=== PATIENT | female | born 1960 | race Caucasian/White ===

== ENCOUNTER 2019-04-26 07:47 | Inpatient (IN) | payer OTHER ==
[2019-04-26] MEDS ORDERED: ASPIRIN 81 MG CHEWABLE TABLET ONE (08:12)
[2019-04-26] MEDS ORDERED: NITROGLYCERIN 0.4 MG/TAB SL ONE (08:12)
[2019-04-26 08:43] LABS: Basophils % 1.3 % (0-1.3); Hematocrit 39.3 % (36.0-45.0); Lymphocytes % 19.2 % (15.3-44.8); MPV 9.1 fL (7.6-11.3); RBC Red Blood Cell Count 4.38 M/uL (3.86-4.86)
[2019-04-26 08:55] LABS: Protime INR 0.95
[2019-04-26 09:05] LABS: ALT/SGPT 30 U/L (12-78); AST/SGOT 16 U/L (15-37); Albumin 3.5 g/dL (3.4-5.0); Alkaline Phosphatase 134 U/L (45-117); BUN Blood Urea Nitrogen 10 mg/dL (7-18); Bicarbonate 27 mmol/L (21-32); Bilirubin Direct < 0.1 mg/dL (0-0.2); Bilirubin Total 0.3 mg/dL (0.2-1.0); Glucose Level 112 mg/dL (74-106); Magnesium 2.2 mg/dL (1.8-2.4); NT PRO-BNP 137 pg/mL (<125); Potassium 3.7 mmol/L (3.5-5.1); Protein, Total 7.4 g/dL (6.4-8.2); Sodium Level 137 mmol/L (136-145); Troponin (Emerg Dept Use Only) < 0.02 ng/mL (0.0-0.045)
--- NOTE | 2019-04-26 09:48 | RAD REPORT ---
EXAM DESCRIPTION: Ethan Single View04/26/2019 8:25 am CLINICAL HISTORY: Chest pain COMPARISON: none FINDINGS: The lungs appear clear of acute infiltrate. The heart is upper limits normal size IMPRESSION: No acute abnormalities displayed
--- NOTE | 2019-04-26 12:16 | ER ---
Nurse's Notes [facility] Name: Lory Naylor Age: 58 yrs Sex: Female : 1960 Arrival Date: 04/26/2019 Time: 07:50 Bed 17 Private MD: Fletcher Garcia E Diagnosis: Non-ST elevation (NSTEMI) myocardial infarction Presentation: 04/26 08:03 Presenting complaint: Patient states: woke up at 6 this morning with left sided chest iw pain radiating to left arm, 5/10, constant, also has headache and her BP was high at home, was 239/112, took losartan 100 mg at 0600. Transition of care: patient was not received from another setting of care. Onset of symptoms was April 26, 2019. Risk Assessment: Do you want to hurt yourself or someone else? Patient reports no desire to harm self or others. Initial Sepsis Screen: Does the patient meet any 2 criteria? No. Patient's initial sepsis screen is negative. Does the patient have a suspected source of infection? No. Patient's initial sepsis screen is negative. Care prior to arrival: None. 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 - Ebola Screening: : Patient negative for fever greater than or equal to 101.5 degrees Fahrenheit, and additional compatible Ebola Virus Disease symptoms Patient denies exposure to infectious person Patient denies travel to an Ebola-affected area in the 21 days before illness onset No symptoms or risks identified at this time. - Social history:: Smoking status: Patient uses tobacco products, smokes one-half pack cigarettes per day. Screenin:25 Abuse screen: Denies threats or abuse. Nutritional screening: No deficits noted. em Tuberculosis screening: No symptoms or risk factors identified. Fall Risk None identified. Assessment: 08:10 General: Appears in no apparent distress. comfortable, Behavior is calm, cooperative, em Denies fever. Pain: Complains of pain in chest and head Pain radiates to anterior aspect of left shoulder Pain currently is 5 out of 10 on a pain scale. Quality of pain is described as pressure, Pain began 2 hours ago. Neuro: Level of Consciousness is awake, alert, obeys commands, Oriented to person, place, time, situation, Appropriate for age Reports headache Denies blurred vision dizziness. Cardiovascular: Capillary refill < 3 seconds Patient's skin is warm and dry. Rhythm is sinus rhythm. Respiratory: Airway is patent Respiratory effort is even, unlabored, Respiratory pattern is regular, symmetrical. GI: Derm: Skin is intact, is healthy with good turgor, Skin is pink, warm \T\ dry. Musculoskeletal: Capillary refill < 3 seconds, Range of motion: intact in all extremities. 08:25 Reassessment: Patient appears in no apparent distress at this time. Patient and/or em family updated on plan of care and expected duration. Pain level reassessed. Patient is alert, oriented x 3, equal unlabored respirations, skin warm/dry/pink. rates pain 2/10 Patient states feeling better. Patient states symptoms have improved. 09:50 Reassessment: Patient appears in no apparent distress at this time. Patient and/or em family updated on plan of care and expected duration. Pain level reassessed. Patient is alert, oriented x 3, equal unlabored respirations, skin warm/dry/pink. rates pain 2/10 in left arm, denies chest pain or headache. 10:50 Reassessment: Patient appears in no apparent distress at this time. Patient and/or em family updated on plan of care and expected duration. Pain level reassessed. Patient is alert, oriented x 3, equal unlabored respirations, skin warm/dry/pink. 11:35 Reassessment: Patient appears in no apparent distress at this time. Patient and/or em family updated on plan of care and expected duration. Pain level reassessed. Patient is alert, oriented x 3, equal unlabored respirations, skin warm/dry/pink. repeat trop. sent to lab. 13:52 Reassessment: Patient appears in no apparent distress at this time. Patient and/or em family updated on plan of care and expected duration. Pain level reassessed. Patient is alert, oriented x 3, equal unlabored respirations, skin warm/dry/pink. Patient denies pain at this time. Patient states feeling better. Patient states symptoms have improved. 14:27 Reassessment: Patient appears in no apparent distress at this time. Patient and/or em family updated on plan of care and expected duration. Pain level reassessed. Patient is alert, oriented x 3, equal unlabored respirations, skin warm/dry/pink. pending room assignment. Vital Signs: 08:08 BP 184 / 93; Pulse 76; Resp 16; Temp 98.0; Pulse Ox 98% on R/A; Pain 5/10; iw 08:25 BP 147 / 86; Pulse 78; Resp 18; Pulse Ox 93% on R/A; Pain 2/10; em 09:10 BP 160 / 90; Pulse 69; Resp 18; Pulse Ox 95% on R/A; Pain 2/10; em 10:11 BP 156 / 84; Pulse 67; Resp 20; Pulse Ox 96% on R/A; Pain 2/10; em 10:50 BP 151 / 91; Pulse 68; Resp 18; Pulse Ox 97% on R/A; em 11:48 BP 169 / 85; Pulse 65; Resp 18; Pulse Ox 95% on R/A; Pain 2/10; em 12:47 Weight 81.19 kg (M); Height 5 ft. 2 in. (157.48 cm) (R); em 13:30 BP 152 / 84; Pulse 59; Resp 18; Pulse Ox 99% on R/A; Pain 0/10; em 14:27 BP 152 / 84; Pulse 64; Resp 18; Pulse Ox 97% on R/A; em 12:47 Body Mass Index 32.74 (81.19 kg, 157.48 cm) em ED Course: 07:50 Patient arrived in ED. mr 07:50 Fletcher Garcia MD is Private Physician. mr 07:50 Christiano Mcclain MD is Attending Physician. kdr 08:05 Triage completed. iw 08:08 Arm band placed on. iw 08:09 Lan Cam LVN is Primary Nurse. em 08:15 Patient maintains SpO2 saturation greater than 95% on room air. em 08:16 EKG done, by ED staff, reviewed by Christiano Mcclain MD. jb1 08:25 Patient has correct armband on for positive identification. Placed in gown. Bed in low em position. Call light in reach. Side rails up X2. Adult w/ patient. monitoring specialist on. Pulse ox on. NIBP on. 08:26 XRAY Chest (1 view) In Process Unspecified. EDMS 12:15 Marla Salgado MD is Hospitalizing Provider. kdr 12:28 EKG done, by ED staff, reviewed by Christiano Mcclain MD. jb1 15:02 No provider procedures requiring assistance completed. Patient admitted, IV remains in em place. Administered Medications: 08:13 Drug: Aspirin Chewable Tablet 324 mg Route: PO; iw 08:26 Follow up: Response: No adverse reaction em 08:13 Drug: Nitroglycerin 0.4 mg Route: Sublingual; iw 08:26 Follow up: Response: No adverse reaction; Marked relief of symptoms; Pain is decreased em 12:44 Drug: Tylenol 1000 mg Route: PO; em 13:50 Follow up: Response: No adverse reaction em 12:45 Drug: Nitro-Bid Ointment 2 % 1 inches Route: Transdermal; Site: anterior chest wall; em 13:50 Follow up: Response: No adverse reaction; Marked relief of symptoms; Blood pressure is em lowered 12:55 Drug: Lovenox 80 mg Route: Sub-Q; Site: left lower abdomen; em 13:50 Follow up: Response: No adverse reaction em 13:01 Not Given (Physician Discretion; received verbal order to give 80 mg sub q): Lovenox 1 em mg/kg Sub-Q once Outcome: 12:16 Decision to Hospitalize by Provider. kdr 15:02 Admitted to Tele accompanied by tech, family with patient, via wheelchair, room 424, em with chart, Report called to BEAR Kang 15:02 Condition: good 15:02 Instructed on the need for admit, Demonstrated understanding of instructions. 15:12 Patient left the ED. em Signatures: Dispatcher [employer] EDMS Enoch Moreno jb1 Christiano Mcclain MD MD kdr Holloway, Lisa mr Lan Cam, PUBLIC HEALTH ANALYST PUBLIC HEALTH ANALYST em Keyla Carter RN RN iw Niño, Zena, RN RN ph Corrections: (The following items were deleted from the chart) 08:13 08:08 BP 184 / 93; Pulse 76bpm; Resp 16bpm; Pulse Ox 98% RA; Pain 5/10; iw iw 09:03 08:25 Reassessment: Patient appears in no apparent distress at this time. Patient em and/or family updated on plan of care and expected duration. Pain level reassessed. Patient is alert, oriented x 3, equal unlabored respirations, skin warm/dry/pink. rates pain 2/10 Patient states feeling better. Patient states symptoms have improved. ph
--- NOTE | 2019-04-26 12:16 | EDPHYS ---
Physician Documentation [facility] Name: Lory Naylor Age: 58 yrs Sex: Female : 1960 Arrival Date: 04/26/2019 Time: 07:50 Bed 17 Private MD: Fletcher Garcia E ED Physician Christiano Mcclain HPI: 04/26 08:09 This 58 yrs old Female presents to ER via Ambulatory with complaints of Chest kdr Pain, High Blood Pressure. 08:39 The patient or guardian reports chest pain that is located primarily in the anterior kdr chest wall, left. Onset: suddenly, at 06:30. The pain radiates to the left arm, the left shoulder, left neck, left jaw. Associated signs and symptoms: Pertinent positives: headache, Pertinent negatives: recent travel, shortness of breath, syncope, vomiting. The chest pain is described as aching, dull, a heaviness, a pressure. Duration: The patient or guardian reports a single episode, that is still ongoing, but improving. Modifying factors: The symptoms are alleviated by nothing. the symptoms are aggravated by movement. Severity of pain: At its worst the pain was a 8 / 10 in the emergency department the pain is a 6 / 10. The patient has not experienced similar symptoms in the past. The patient has not recently seen a physician. 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 - Ebola Screening: : Patient negative for fever greater than or equal to 101.5 degrees Fahrenheit, and additional compatible Ebola Virus Disease symptoms Patient denies exposure to infectious person Patient denies travel to an Ebola-affected area in the 21 days before illness onset No symptoms or risks identified at this time. - Social history:: Smoking status: Patient uses tobacco products, smokes one-half pack cigarettes per day. ROS: 08:39 Constitutional: Negative for fever, chills, and weight loss, Eyes: Negative for injury, kdr pain, redness, and discharge, ENT: Negative for injury, pain, and discharge, Neck: Negative for injury, pain, and swelling, Respiratory: Negative for shortness of breath, cough, wheezing, and pleuritic chest pain, Abdomen/GI: Negative for abdominal pain, nausea, vomiting, diarrhea, and constipation, Back: Negative for injury and pain, : Negative for injury, bleeding, discharge, and swelling, MS/Extremity: Negative for injury and deformity, Skin: Negative for injury, rash, and discoloration, Neuro: Negative for headache, weakness, numbness, tingling, and seizure activity. Psych: Negative for depression, anxiety, suicide ideation, homicidal ideation, and hallucinations, Allergy/Immunology: Negative for hives, rash, and allergies, Endocrine: Negative for neck swelling, polydipsia, polyuria, polyphagia, and marked weight changes, Hematologic/Lymphatic: Negative for swollen nodes, abnormal bleeding, and unusual bruising. 08:39 Cardiovascular: Positive for chest pain, Negative for edema, orthopnea, palpitations, paroxysmal nocturnal dyspnea, acute changes, The left leg has chronic swelling. Exam: 08:39 Constitutional: This is a well developed, well nourished patient who is awake, alert, kdr and in no acute distress. Head/Face: Normocephalic, atraumatic. Eyes: Pupils equal round and reactive to light, extra-ocular motions intact. Lids and lashes normal. Conjunctiva and sclera are non-icteric and not injected. Cornea within normal limits. Periorbital areas with no swelling, redness, or edema. Neck: Trachea midline, no thyromegaly or masses palpated, and no cervical lymphadenopathy. Supple, full range of motion without nuchal rigidity, or vertebral point tenderness. No Meningismus. Chest/axilla: Normal chest wall appearance and motion. Nontender with no deformity. No lesions are appreciated. Cardiovascular: Regular rate and rhythm with a normal S1 and S2. No gallops, murmurs, or rubs. Normal PMI, no JVD. No pulse deficits. Respiratory: Lungs have equal breath sounds bilaterally, clear to auscultation and percussion. No rales, rhonchi or wheezes noted. No increased work of breathing, no retractions or nasal flaring. Abdomen/GI: Soft, non-tender, with normal bowel sounds. No distension or tympany. No guarding or rebound. No evidence of tenderness throughout. Back: No spinal tenderness. No costovertebral tenderness. Full range of motion. Skin: Warm, dry with normal turgor. Normal color with no rashes, no lesions, and no evidence of cellulitis. MS/ Extremity: Pulses equal, no cyanosis. Neurovascular intact. Full, normal range of motion. The is chronic swelling to the left lower extremity that is unchanged today Neuro: Awake and alert, GCS 15, oriented to person, place, time, and situation. Cranial nerves II-XII grossly intact. Motor strength 5/5 in all extremities. Sensory grossly intact. Cerebellar exam normal. Normal gait. Psych: Awake, alert, with orientation to person, place and time. Behavior, mood, and affect are within normal limits. Vital Signs: 08:08 BP 184 / 93; Pulse 76; Resp 16; Temp 98.0; Pulse Ox 98% on R/A; Pain 5/10; iw 08:25 BP 147 / 86; Pulse 78; Resp 18; Pulse Ox 93% on R/A; Pain 2/10; em 09:10 BP 160 / 90; Pulse 69; Resp 18; Pulse Ox 95% on R/A; Pain 2/10; em 10:11 BP 156 / 84; Pulse 67; Resp 20; Pulse Ox 96% on R/A; Pain 2/10; em 10:50 BP 151 / 91; Pulse 68; Resp 18; Pulse Ox 97% on R/A; em 11:48 BP 169 / 85; Pulse 65; Resp 18; Pulse Ox 95% on R/A; Pain 2/10; em 12:47 Weight 81.19 kg (M); Height 5 ft. 2 in. (157.48 cm) (R); em 13:30 BP 152 / 84; Pulse 59; Resp 18; Pulse Ox 99% on R/A; Pain 0/10; em 14:27 BP 152 / 84; Pulse 64; Resp 18; Pulse Ox 97% on R/A; em 12:47 Body Mass Index 32.74 (81.19 kg, 157.48 cm) em MDM: 08:39 Data reviewed: vital signs, nurses notes, lab test result(s). kdr 12:16 Patient medically screened. kdr 12:47 ED course: The patient is current pain free and not requiring any pain medications . kdr 04/26 08:07 Order name: Basic Metabolic Panel; Complete Time: 09:23 kdr 04/26 08:07 Order name: CBC with Diff; Complete Time: 09:23 kdr 04/26 08:07 Order name: LFT's; Complete Time: 09:23 kdr 04/26 08:07 Order name: Magnesium; Complete Time: 09:23 kdr 12 08:07 Order name: NT PRO-BNP; Complete Time: 09:23 kdr 04/26 08:07 Order name: PT-INR; Complete Time: 09:23 kdr 04/26 08:07 Order name: Troponin (emerg Dept Use Only); Complete Time: 09:23 kdr 04/26 09:45 Order name: Troponin (emerg Dept Use Only): Repeat three (3) hours after initial draw; kdr Complete Time: 12:10 04/26 14:00 Order name: Lipid Profile EDMS 04/26 14:00 Order name: CBC with Automated Diff EDMS 04/26 14:00 Order name: CBC with Automated Diff EDMS 04/26 14:00 Order name: CBC with Automated Diff EDMS 04/26 14:00 Order name: CBC with Automated Diff EDMS 04/26 14:00 Order name: Comprehensive Metabolic Panel EDMS 04/26 08:07 Order name: XRAY Chest (1 view); Complete Time: 12:10 kdr 04/26 08:07 Order name: EKG; Complete Time: 08:08 kdr 04/26 14:00 Order name: CONS Physician Consult EDMS 04/26 14:00 Order name: Echo with Doppler EDMS 04/26 14:00 Order name: Comprehensive Metabolic Panel EDMS 04/26 14:00 Order name: Troponin I EDMS 04/26 14:00 Order name: Troponin I EDMS 04/26 14:00 Order name: Troponin I EDMS 04/26 14:00 Order name: Troponin I EDMS 04/26 14:00 Order name: Troponin I EDMS 04/26 08:07 Order name: Cardiac monitoring; Complete Time: 08:16 kdr 04/26 08:07 Order name: EKG - Nurse/Tech; Complete Time: 08:16 kdr 04/26 08:07 Order name: IV Saline Lock; Complete Time: 08:16 kdr 04/26 08:07 Order name: Labs collected and sent; Complete Time: 08:16 kdr 04/26 08:07 Order name: O2 Per Protocol; Complete Time: 08:16 kdr 04/26 08:07 Order name: O2 Sat Monitoring; Complete Time: 08:16 kdr 12 14:00 Order name: Clear Liquid EDMS 04/26 14:00 Order name: EKG Electrocardiogram EDMS 04/26 14:00 Order name: EKG Electrocardiogram EDMS Administered Medications: 08:13 Drug: Aspirin Chewable Tablet 324 mg Route: PO; iw 08:26 Follow up: Response: No adverse reaction em 08:13 Drug: Nitroglycerin 0.4 mg Route: Sublingual; iw 08:26 Follow up: Response: No adverse reaction; Marked relief of symptoms; Pain is decreased em 12:44 Drug: Tylenol 1000 mg Route: PO; em 13:50 Follow up: Response: No adverse reaction em 12:45 Drug: Nitro-Bid Ointment 2 % 1 inches Route: Transdermal; Site: anterior chest wall; em 13:50 Follow up: Response: No adverse reaction; Marked relief of symptoms; Blood pressure is em lowered 12:55 Drug: Lovenox 80 mg Route: Sub-Q; Site: left lower abdomen; em 13:50 Follow up: Response: No adverse reaction em 13:01 Not Given (Physician Discretion; received verbal order to give 80 mg sub q): Lovenox 1 em mg/kg Sub-Q once Disposition: 04/26/19 12:16 Hospitalization ordered by Marla Salgado for Inpatient Admission. Preliminary diagnosis is Non-ST elevation (NSTEMI) myocardial infarction. - Bed requested for Telemetry/MedSurg (Inpatient). - Status is Inpatient Admission. em - Condition is Fair. - Problem is new. - Symptoms have improved. UTI on Admission? No Signatures: Dispatcher [employer] Valencia Whitney RN BEAR Christiano Mcclain MD MD kdr Munoz, Edgar, CAR CLERK PULLMAN CAR CLERK PULLMAN em Keyla Carter RN RN Gisela Oropeza Corrections: (The following items were deleted from the chart) 13:03 12:16 Hospitalization Ordered by Marla Salgado MD for Inpatient Admission. Preliminary eb diagnosis is Non-ST elevation (NSTEMI) myocardial infarction. Bed requested for Telemetry/MedSurg (Inpatient). Status is Inpatient Admission. Condition is Fair. Problem is new. Symptoms have improved. UTI on Admission? No. kdr 14:37 13:03 04/26/2019 12:16 Hospitalization Ordered by Marla Salgado MD for Inpatient dw Admission. Preliminary diagnosis is Non-ST elevation (NSTEMI) myocardial infarction. Bed requested for Telemetry/MedSurg (Inpatient). Status is Inpatient Admission. Condition is Fair. Problem is new. Symptoms have improved. UTI on Admission? No. eb 15:12 14:37 04/26/2019 12:16 Hospitalization Ordered by Marla Salgado MD for Inpatient em Admission. Preliminary diagnosis is Non-ST elevation (NSTEMI) myocardial infarction. Bed requested for Telemetry/MedSurg (Inpatient). Status is Inpatient Admission. Condition is Fair. Problem is new. Symptoms have improved. UTI on Admission? No. dw
[2019-04-26] MEDS ORDERED: ACETAMINOPHEN 500 MG TAB ONE (12:25)
[2019-04-26] MEDS ORDERED: NITROGLYCERIN 1 GM PKT TD ONE (12:25)
[2019-04-26] MEDS ORDERED: ENOXAPARIN 80 MG/0.8 ML SQ ONE (12:51)
[2019-04-26] MEDS ORDERED: MORPHINE 2 MG/ML SYR IV PRN (13:47)
[2019-04-26] MEDS ORDERED: ONDANSETRON 4 MG/2 ML VIAL IV PRN (13:47)
[2019-04-26] MEDS ORDERED: ALBUTEROL 2.5 MG/3 ML NEB SOL NEB PRN (13:47)
[2019-04-26] MEDS: CLOPIDOGREL 75 MG TABLET PO SCH (13:53)
[2019-04-26] MEDS ORDERED: HYDRALAZINE HCL 20 MG/ML VIAL IV PRN (13:54)
[2019-04-26] MEDS ORDERED: Oxycodone HCl/Acetaminophen 1 TAB TAB PO PRN (13:54)
[2019-04-26] MEDS ORDERED: LORAZEPAM 0.5 MG TABLET PO PRN (13:54)
[2019-04-26] MEDS: NA CHLORIDE 0.9% 1,000 ML IV SCH ×2 (14:00→15:45)
[2019-04-26 15:23] VITALS: BMI 31.8
[2019-04-26] MEDS: NITROGLYCERIN 0.2 MG/HR (5 MG) PATCH TD SCH (16:00)
[2019-04-26] MEDS: NICOTINE 21 MG/PAT TD SCH (16:45)
[2019-04-26 16:54] LABS: Urine Appearance CLOUDY; Urine Bilirubin NEGATIVE (NEG); Urine Blood 3+ (NEG); Urine Color YELLOW; Urine Glucose NEGATIVE (NEG); Urine Protein NEGATIVE (NEG); Urine Specific Gravity 1.025 (1.005-1.030); Urine Urobilinogen 0.2 mg/dL (0.2-1.0)
[2019-04-26 17:31] LABS: Urine Microscopic Reflex ORDER UMIC
[2019-04-26 17:34] LABS: Urine Bacteria 20-50 /HPF (<20); Urine Culture Reflex Order REFLEXED; Urine RBC 20-50 /HPF (NONE SEEN)
[2019-04-26 17:43] LABS: Troponin I 0.64 ng/mL (0.0-0.045)
[2019-04-26] MEDS: carvediloL 3.125 MG TAB PO SCH ×2 (17:57→18:02)
[2019-04-26] MEDS: ATORVASTATIN 20 MG TAB PO SCH (20:54)
[2019-04-26] MEDS: FAMOTIDINE 20 MG TAB PO SCH (20:54)
[2019-04-26] MEDS: ROPINIROLE HCL 1 MG TAB PO SCH (20:55)
[2019-04-26] MEDS: ENOXAPARIN 80 MG/0.8 ML SQ SCH (20:56)
--- NOTE | 2019-04-27 01:46 | HP ---
Date of Admission: 04/26/2019 Presenting Complaint: Substernal chest pain. History Of Present Illness: Ms. Lory Naylor is a 58-year-old female with past medical history of hypertension, chronic tobacco use, who presented today after developing substernal chest p ain radiating to the left shoulder, onset was at about 6:00 a.m. this morning. Pain has woken the pa tient up from sleep. She describes the pain as more sharp. She says pain is different from her usua l heartburn symptoms. She denies any shortness of breath, but feels the pain was associated with davon e chest tightness. She admit to some cough intermittently from allergy symptoms since the last coupl e weeks. She denies any fever or chills. The pain continued to persist when she arrived in the ED w here she was given sublingual nitroglycerin, which decreased the intensity of the pain. She was also given aspirin as well as morphine. Her pain has reduced to 2/10 now. She denies any nausea or vomi ting. She denies any recent travel. Her initial EKG and cardiac enzyme were negative, but followup shows elevation of troponin to 0.16. The patient is being admitted for further acute coronary syndro me workup. She admits to a history of stress test done 5 years ago in the director emergency department's office when she was having similar pain post surgery. She reported stress test was negative then. She was star adams on blood pressure medications. She still continues to smoke. There is no family history of marcelo nary artery disease she is aware of. 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 Patient has history of left foot neuropathy post surgery. Past Surgical History: 1.Excision of left calf sarcoma 6 years ago treated with post resection with radiotherapy. 2.History of section x2. 3.History of endometrial D and C. Allergies: NO KNOWN DRUG ALLERGIES. Home Medications: Include ropinirole, lisinopril/hydrochlorothiazide. Social History: Patient resides in the community with her spouse. She is fully functional at [facility]. No history of alcohol or illicit drug use. She admits to half a pack to 1 pack of cigarettes sm oked per day since over the last 22 years. Family History: 1.Significant for both parents having debility and dementia in the 80s. 2.No history of coronary artery disease. Review of Systems: All systems reviewed x14 were negative. Physical Examination: Vital Signs: Blood pressure of 154/78, pulse rate of 69, respiratory rate of 18, O2 saturation 95% o n room air, temperature afebrile. General: Overweight middle-aged female, calm, not in any distress, sitting up in bed. HEENT: Head atraumatic, normocephalic. Pupils equal and reactive to light. [place] conjunctivae. Ani cteric. Moist oral mucosa. Neck: No JVD. No carotid bruit. Respiratory: Good air entry. No crepitation. Cardiovascular: S1, S2. Rate and rhythm regular. Noted tenderness in both bilateral anterior chest wall. The more prominent over the left shoulder area. No change in range of motion of the left rosalba ulder. GI: Abdomen was soft, nontender. No epigastric tenderness. Bowel sounds positive. Rectal: Deferred. Extremities: No calf tenderness bilaterally, notable scar over the left calf area with tenderness be low the area of the up to the left ankle. Neuro: Patient is alert and oriented. Cranial nerves 2 through 12 grossly intact. Laboratory Data: Sodium 137, potassium 3.7, bicarb 27, creatinine 0.8, glucose 112, magnesium 2.2, A ST and alkaline phosphatase normal. Troponin 0.16 after initial negative set. ProBNP of 137. WBC 1 0.6, hemoglobin 13, platelets 386. Chest x-ray shows no acute intrathoracic abnormality. EKG showed normal sinus rhythm, initial rate o f 66 beats per minute, repeat at a rate of 74 beats per minute . Impression: 1.Atypical chest pain, possible [id number] myocardial infarction. 2.Chronic tobacco use. 3.Hypertension. Plan: While we admit patient to inpatient status, we will manage patient for the followin.[id number] myocardial infarction, mild elevation in troponin noted. We will continue to do serial set of cardiac enzymes. We will consult Cardiology. We will start patient on Lovenox 1 mg/kg q.12 hours. We will start patient on low-dose beta essence as well as LEONCIO inhibitors. We will cont inue nitroglycerin patch. We placed her on telemetry. If further rise in her troponin, patient migh t benefit from cardiac cath. Option of inpatient stress test prior to discharge also discussed. We will start the patient on aspirin and Plavix. 2.Hypertension, follow with regimen as above. 3.Chronic tobacco use, need for tobacco cessation advice. We initiated the patient on nicotine patc h. 4.Deep venous thrombosis prophylaxis. Subcutaneous Lovenox as above. 5.Advanced directives. Patient is a full code. Total time spent review of record, discussion with patient and evaluation, as well as counseling olimpia ter than 60 minutes. EO/MODL Voice ID: [id number]
--- NOTE | 2019-04-27 02:12 | CON ---
History Of Present Illness: Ms. Naylor is 58. She came to the hospital because of chest pain, stat es that she has been having chest pain similar to this for quite some time relating to indigestion, b ut this morning when it was worse she came to the hospital, although her EKG is normal and her chest pain is resolved. Now, she had troponins that are elevated consistent with non-ST elevation non-Q-wa ve NM. About 5 years ago, an EKG was abnormal and she underwent a stress test and echo. They were n ormal according to the patient. Dr. Hatch was the attending physician then. The patient has no pr evious history of myocardial infarction, stroke, or diabetes. She has hypertension. 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 Medications: Her outpatient medications are ropinirole, tramadol, cyclobenzaprine, duloxetine, losar bess. Allergies: SHE REPORTS ALLERGIES TO CODEINE, SULFA ANTIBIOTICS. SHE HAS NO PROBLEM TAKING X-RAY CON TRAST MATERIAL. Past Medical History: History of tubal ligation. She has not had any examinations by motor vehicle clerk i n several years and noted some spotting when she was given Lovenox. Physical Examination: General: She is alert, oriented, pleasant, 5 feet 3 inches, 179 pounds. HEENT: Normal. Lungs: Clear. Cardiac: Normal. Abdomen: Soft. Extremities: Normal pulses. On her left leg, there is an extensive scar and skin grafting from wher e she had her liposarcoma resected. Imaging: Her electrocardiogram is normal. Impression: The patient has an acute coronary syndrome. She probably has coronary heart disease. I have asked her to quit smoking and undergo a cardiac cath. Patient seemed to understand what a card iac catheterization is and agrees to proceed. We will keep her on Lovenox, aspirin, beta blockers, l ipid-lowering agents, Lovenox until we do the cardiac cath on Sunday. JORGE LUIS/POLI Voice ID: [id number] Report ID: [id number]
[2019-04-27] MEDS: carvediloL 3.125 MG TAB PO SCH ×2 (05:05→16:59)
--- NOTE | 2019-04-27 06:05 | EKG ---
Test Date: 2019-04-26 Test Time: 08:07:39 Salesperson Burial Needs: MICHAELLE MEASUREMENT RESULTS: Intervals: Rate: 74 KS: 152 QRSD: 76 QT: 394 QTc: 437 [place]: P: 37 KS: 152 QRS: 36 T: 49 INTERPRETIVE STATEMENTS: Normal sinus rhythm Low voltage QRS Borderline ECG No previous ECG available for comparison Electronically Signed On 04-27-19 06:04:59 ANTENNA MACHINE OPERATOR by Steve Le
[2019-04-27 06:07] LABS: Absolute Lymphocytes (CBC) 2.8 K/uL (0.7-4.9); Basophils % 1.4 % (0-1.3); Hematocrit 35.9 % (36.0-45.0); Lymphocytes % 30.5 % (15.3-44.8); MPV 9.3 fL (7.6-11.3)
[2019-04-27 06:25] LABS: ALT/SGPT 29 U/L (12-78); AST/SGOT 16 U/L (15-37); Alkaline Phosphatase 113 U/L (45-117); BUN Blood Urea Nitrogen 9 mg/dL (7-18); Bicarbonate 26 mmol/L (21-32); Bilirubin Total 0.2 mg/dL (0.2-1.0); Glucose Level 103 mg/dL (74-106); Potassium 3.9 mmol/L (3.5-5.1); Protein, Total 6.3 g/dL (6.4-8.2); Sodium Level 138 mmol/L (136-145)
[2019-04-27] MEDS: NICOTINE 21 MG/PAT TD SCH (08:29)
[2019-04-27] MEDS: ENOXAPARIN 80 MG/0.8 ML SQ SCH (08:30)
[2019-04-27] MEDS: FAMOTIDINE 20 MG TAB PO SCH ×2 (08:30→20:06)
[2019-04-27] MEDS: ROPINIROLE HCL 1 MG TAB PO SCH ×2 (08:30→20:06)
[2019-04-27] MEDS: CLOPIDOGREL 75 MG TABLET PO SCH (08:30)
[2019-04-27] MEDS: ASPIRIN 81 MG CHEWABLE TABLET PO SCH (08:30)
[2019-04-27] MEDS: lisinopriL 20 MG TAB PO SCH (08:30)
[2019-04-27] MEDS: NA CHLORIDE 0.9% 1,000 ML IV SCH (09:15)
[2019-04-27] MEDS: ACETAMINOPHEN 325 MG TABLET PO PRN ×2 (09:20→16:59)
[2019-04-27] MEDS: NITROGLYCERIN 0.2 MG/HR (5 MG) PATCH TD SCH (09:51)
--- NOTE | 2019-04-27 10:12 | EKG ---
Test Date: 2019-04-26 Test Time: 12:26:02 Numerical Control Operator: MICHAELLE MEASUREMENT RESULTS: Intervals: Rate: 66 [place]: 146 QRSD: 74 QT: 432 QTc: 452 [place]: P: 31 [place]: 146 QRS: 54 T: 69 INTERPRETIVE STATEMENTS: Normal sinus rhythm Low voltage QRS Borderline ECG Compared to ECG 04/26/2019 08:07:39 No significant changes Electronically Signed On 04-27-19 10:11:55 CLOSET BUILDER by Steve Le
--- NOTE | 2019-04-27 11:50 | P.PN ---
Subjective Date of Service: 04/27/19 Subjective: No new changes, No C/O voiced (seen , no new c/o , fever resolved) Review of Systems 10-point ROS is otherwise unremarkable Physical Examination - Vital Signs Temperature: 97.6 F Blood Pressure: 144/83 Pulse: 70 Respirations: 18 Pulse Ox (%): 98 - Physical Exam General: Alert, In no apparent distress, Oriented x3 HEENT: Atraumatic, Normocephalic, PERRLA Neck: 2+ carotid pulse no bruit, JVD not distended Respiratory: Clear to auscultation bilaterally, Normal air movement Cardiovascular: Regular rate/rhythm, Normal S1 S2 Gastrointestinal: Normal bowel sounds, Soft and benign Musculoskeletal: No clubbing, No swelling Neurological: Normal gait, Normal speech, Normal strength at 5/5 x4 extr - Studies Laboratory Last Values WBC 9.3 K/uL (4.3-10.9) 04/27/19 05:24 RBC 4.00 M/uL (3.86-4.86) 04/27/19 05:24 Hgb 12.1 g/dL (12.0-15.0) 04/27/19 05:24 Hct 35.9 % (36.0-45.0) L 04/27/19 05:24 MCV 89.8 fL (80-100) 04/27/19 05:24 MCH 30.2 pg (27.0-35.0) 04/27/19 05:24 MCHC 33.7 g/dL (32.0-36.0) 04/27/19 05:24 RDW 14.5 % (12.1-15.2) 04/27/19 05:24 Plt Count 343 K/uL (152-406) 04/27/19 05:24 MPV 9.3 fL (7.6-11.3) 04/27/19 05:24 Neutrophils % 57.0 % (41.7-73.7) 04/27/19 05:24 Lymphocytes % 30.5 % (15.3-44.8) 04/27/19 05:24 Monocytes % 8.8 % (3.3-12.3) 04/27/19 05:24 Eosinophils % 2.3 % (0-4.4) 04/27/19 05:24 Basophils % 1.4 % (0-1.3) H 04/27/19 05:24 Absolute Neutrophils 5.3 K/uL (1.8-8.0) 04/27/19 05:24 Absolute Lymphocytes 2.8 K/uL (0.7-4.9) 04/27/19 05:24 Absolute Monocytes 0.8 K/uL (0.1-1.3) 04/27/19 05:24 Absolute Eosinophils 0.2 K/uL (0-0.5) 04/27/19 05:24 Absolute Basophils 0.1 K/uL (0-0.5) 04/27/19 05:24 PT 11.2 SECONDS (9.5-12.5) 04/26/19 08:15 INR 0.95 04/26/19 08:15 Sodium 138 mmol/L (136-145) 04/27/19 05:24 Potassium 3.9 mmol/L (3.5-5.1) 04/27/19 05:24 Chloride 108 mmol/L (98-107) H 04/27/19 05:24 Carbon Dioxide 26 mmol/L (21-32) 04/27/19 05:24 BUN 9 mg/dL (7-18) 04/27/19 05:24 Creatinine 0.62 mg/dL (0.55-1.3) 04/27/19 05:24 Estimated GFR > 90 mL/min (=/>90) 04/27/19 05:24 Glucose 103 mg/dL (74-106) 04/27/19 05:24 Calcium 8.4 mg/dL (8.5-10.1) L 04/27/19 05:24 Magnesium 2.2 mg/dL (1.8-2.4) 04/26/19 08:15 Total Bilirubin 0.2 mg/dL (0.2-1.0) 04/27/19 05:24 Direct Bilirubin < 0.1 mg/dL (0-0.2) 04/26/19 08:15 AST 16 U/L (15-37) 04/27/19 05:24 ALT 29 U/L (12-78) 04/27/19 05:24 Alkaline Phosphatase 113 U/L (45-117) 04/27/19 05:24 Rapid Troponin I 0.16 ng/mL (0.0-0.045) H 04/26/19 11:39 Troponin I Cancelled 04/26/19 21:00 NT-Pro-B Natriuret Pep 137 pg/mL (<125) H 04/26/19 08:15 Serum Total Protein 6.3 g/dL (6.4-8.2) L 04/27/19 05:24 Albumin 3.0 g/dL (3.4-5.0) L 04/27/19 05:24 Globulin 3.3 g/dL (2.3-3.5) D 04/27/19 05:24 Albumin/Globulin Ratio 0.9 (1.1-1.8) L 04/27/19 05:24 Triglycerides 154 mg/dL (<150) H 04/26/19 17:05 Cholesterol 193 mg/dL (<200) 04/26/19 17:05 LDL Cholesterol, Calc 106 (<130) 04/26/19 17:05 HDL Cholesterol 56 mg/dL (40-60) 04/26/19 17:05 Cholesterol/HDL Ratio 3.45 04/26/19 17:05 Urine Color Yellow 04/26/19 16:10 Urine Appearance Cloudy 04/26/19 16:10 Urine pH 6.0 (5.0-7.0) 04/26/19 16:10 Ur Specific [place] 1.025 (1.005-1.030) 04/26/19 16:10 Urine Ketones Trace (NEG) 04/26/19 16:10 Urine Blood 3+ (NEG) H 04/26/19 16:10 Urine Nitrite Negative (NEG) 04/26/19 16:10 Urine Bilirubin Negative (NEG) 04/26/19 16:10 Urine Urobilinogen 0.2 mg/dL (0.2-1.0) 04/26/19 16:10 Ur Leukocyte Esterase Negative (NEG) 04/26/19 16:10 Urine RBC 20-50 /HPF (NONE SEEN) H 04/26/19 16:10 Urine WBC <5 /HPF (<5) 04/26/19 16:10 Ur Squamous Epith Cells 5-10 /HPF (NONE SEEN) H 04/26/19 16:10 Urine Bacteria 20-50 /HPF (<20) H 04/26/19 16:10 Urine Culture Reflexed Reflexed 04/26/19 16:10 Urine Glucose Negative (NEG) 04/26/19 16:10 Urine Total Protein Negative (NEG) 04/26/19 16:10 Medications List Reviewed: Yes Assessment & Plan - Problems (Diagnosis) (1) Pyelonephritis of right kidney Current Visit: Yes Status: Acute (2) Single kidney Current Visit: Yes Status: Acute Discharge Plan: Home - Code Status/Comfort Care Code Status Assessed: Yes Code Status: Full Code Physician Review: Patient Assessed, Agree with Above Assessment and Plan Physician Review Additional Text: # Right pyelonephritis - noted on CT imaging -resolved symptoms , - improving , c/w abx with levaquin - no fever since adm , follow urine cx -can dc home and follow cx # single kidney status - due to left nephrectomy for mass -stable creatinine # HTN -elevated , resume home meds and follow Critical Care: No
--- NOTE | 2019-04-27 12:04 | P.PN ---
Subjective Date of Service: 04/27/19 Chief Complaint: seen , admitted for chest pain with mild troponin Subjective: No new changes, No C/O voiced (-occ headaches since ntg patch) Review of Systems 10-point ROS is otherwise unremarkable Physical Examination - Vital Signs Temperature: 97.6 F Blood Pressure: 144/83 Pulse: 70 Respirations: 18 Pulse Ox (%): 98 - Physical Exam General: Alert, In no apparent distress, Oriented x3 HEENT: Atraumatic, Normocephalic, PERRLA Respiratory: Clear to auscultation bilaterally, Normal air movement Cardiovascular: No edema, Normal pulses, Regular rate/rhythm, Normal S1 S2 Gastrointestinal: Normal bowel sounds, Soft and benign Musculoskeletal: No clubbing, No swelling Neurological: Normal gait, Normal speech - Studies Laboratory Last Values WBC 9.3 K/uL (4.3-10.9) 04/27/19 05:24 RBC 4.00 M/uL (3.86-4.86) 04/27/19 05:24 Hgb 12.1 g/dL (12.0-15.0) 04/27/19 05:24 Hct 35.9 % (36.0-45.0) L 04/27/19 05:24 MCV 89.8 fL (80-100) 04/27/19 05:24 MCH 30.2 pg (27.0-35.0) 04/27/19 05:24 MCHC 33.7 g/dL (32.0-36.0) 04/27/19 05:24 RDW 14.5 % (12.1-15.2) 04/27/19 05:24 Plt Count 343 K/uL (152-406) 04/27/19 05:24 MPV 9.3 fL (7.6-11.3) 04/27/19 05:24 Neutrophils % 57.0 % (41.7-73.7) 04/27/19 05:24 Lymphocytes % 30.5 % (15.3-44.8) 04/27/19 05:24 Monocytes % 8.8 % (3.3-12.3) 04/27/19 05:24 Eosinophils % 2.3 % (0-4.4) 04/27/19 05:24 Basophils % 1.4 % (0-1.3) H 04/27/19 05:24 Absolute Neutrophils 5.3 K/uL (1.8-8.0) 04/27/19 05:24 Absolute Lymphocytes 2.8 K/uL (0.7-4.9) 04/27/19 05:24 Absolute Monocytes 0.8 K/uL (0.1-1.3) 04/27/19 05:24 Absolute Eosinophils 0.2 K/uL (0-0.5) 04/27/19 05:24 Absolute Basophils 0.1 K/uL (0-0.5) 04/27/19 05:24 PT 11.2 SECONDS (9.5-12.5) 04/26/19 08:15 INR 0.95 04/26/19 08:15 Sodium 138 mmol/L (136-145) 04/27/19 05:24 Potassium 3.9 mmol/L (3.5-5.1) 04/27/19 05:24 Chloride 108 mmol/L (98-107) H 04/27/19 05:24 Carbon Dioxide 26 mmol/L (21-32) 04/27/19 05:24 BUN 9 mg/dL (7-18) 04/27/19 05:24 Creatinine 0.62 mg/dL (0.55-1.3) 04/27/19 05:24 Estimated GFR > 90 mL/min (=/>90) 04/27/19 05:24 Glucose 103 mg/dL (74-106) 04/27/19 05:24 Calcium 8.4 mg/dL (8.5-10.1) L 04/27/19 05:24 Magnesium 2.2 mg/dL (1.8-2.4) 04/26/19 08:15 Total Bilirubin 0.2 mg/dL (0.2-1.0) 04/27/19 05:24 Direct Bilirubin < 0.1 mg/dL (0-0.2) 04/26/19 08:15 AST 16 U/L (15-37) 04/27/19 05:24 ALT 29 U/L (12-78) 04/27/19 05:24 Alkaline Phosphatase 113 U/L (45-117) 04/27/19 05:24 Rapid Troponin I 0.16 ng/mL (0.0-0.045) H 04/26/19 11:39 Troponin I Cancelled 04/26/19 21:00 NT-Pro-B Natriuret Pep 137 pg/mL (<125) H 04/26/19 08:15 Serum Total Protein 6.3 g/dL (6.4-8.2) L 04/27/19 05:24 Albumin 3.0 g/dL (3.4-5.0) L 04/27/19 05:24 Globulin 3.3 g/dL (2.3-3.5) D 04/27/19 05:24 Albumin/Globulin Ratio 0.9 (1.1-1.8) L 04/27/19 05:24 Triglycerides 154 mg/dL (<150) H 04/26/19 17:05 Cholesterol 193 mg/dL (<200) 04/26/19 17:05 LDL Cholesterol, Calc 106 (<130) 04/26/19 17:05 HDL Cholesterol 56 mg/dL (40-60) 04/26/19 17:05 Cholesterol/HDL Ratio 3.45 04/26/19 17:05 Urine Color Yellow 04/26/19 16:10 Urine Appearance Cloudy 04/26/19 16:10 Urine pH 6.0 (5.0-7.0) 04/26/19 16:10 Ur Specific [place] 1.025 (1.005-1.030) 04/26/19 16:10 Urine Ketones Trace (NEG) 04/26/19 16:10 Urine Blood 3+ (NEG) H 04/26/19 16:10 Urine Nitrite Negative (NEG) 04/26/19 16:10 Urine Bilirubin Negative (NEG) 04/26/19 16:10 Urine Urobilinogen 0.2 mg/dL (0.2-1.0) 04/26/19 16:10 Ur Leukocyte Esterase Negative (NEG) 04/26/19 16:10 Urine RBC 20-50 /HPF (NONE SEEN) H 04/26/19 16:10 Urine WBC <5 /HPF (<5) 04/26/19 16:10 Ur Squamous Epith Cells 5-10 /HPF (NONE SEEN) H 04/26/19 16:10 Urine Bacteria 20-50 /HPF (<20) H 04/26/19 16:10 Urine Culture Reflexed Reflexed 04/26/19 16:10 Urine Glucose Negative (NEG) 04/26/19 16:10 Urine Total Protein Negative (NEG) 04/26/19 16:10 Medications List Reviewed: Yes Assessment & Plan - Problems (Diagnosis) (1) Chest pain at rest Current Visit: Yes Status: Acute (2) Non-ST elevation IN (NSTEMI) Current Visit: Yes Status: Acute (3) HTN (hypertension) Current Visit: Yes Status: Acute Discharge Plan: Home Plan to discharge in: 24 Hours - Code Status/Comfort Care Code Status Assessed: Yes Code Status: Full Code Physician Review: Patient Assessed, Agree with Above Assessment and Plan Physician Review Additional Text: # Chest pain - mild tropinin elevation -c/w lovenox . plavix ,aspirin - mild vagina spotting reported , will need outpt gynecology referal after acute ACS resolved -appreciated cardiology eval -follow plan for cardiac cath in am # HTN -elevated , rc/w lsinopril and coreg - increase coreg dose today # Tob use -on nicotine patch Dispo- possible home in am after cardiac cath Time Spent Managing Pts Care (In Minutes): 30
--- NOTE | 2019-04-27 15:40 | PN ---
58-year-old woman with no more chest pain. Her troponins have gone up as high as 0.64. Her EKGs are unchanged. We plan to do a cardiac cath, possible stent tomorrow. She seems to understand the proc edure, its potential benefits, indications, risks, and agrees to proceed. We will hold Lovenox after 6 p.m. tatiana. ESMER Voice ID: [id number] Report ID: [id number]
[2019-04-27] MEDS: ATORVASTATIN 20 MG TAB PO SCH (20:06)
[2019-04-28] MEDS: lisinopriL 20 MG TAB PO SCH (05:16)
[2019-04-28] MEDS: ASPIRIN 81 MG CHEWABLE TABLET PO SCH (05:16)
[2019-04-28] MEDS: carvediloL 3.125 MG TAB PO SCH (05:16)
[2019-04-28] MEDS: CLOPIDOGREL 75 MG TABLET PO SCH (05:16)
[2019-04-28 06:33] LABS: Absolute Lymphocytes (CBC) 2.4 K/uL (0.7-4.9); Basophils % 1.4 % (0-1.3); Hematocrit 37.5 % (36.0-45.0); Lymphocytes % 27.7 % (15.3-44.8); MPV 9.2 fL (7.6-11.3); RBC Red Blood Cell Count 4.18 M/uL (3.86-4.86)
[2019-04-28 06:51] LABS: ALT/SGPT 30 U/L (12-78); AST/SGOT 18 U/L (15-37); Albumin 3.3 g/dL (3.4-5.0); Alkaline Phosphatase 113 U/L (45-117); BUN Blood Urea Nitrogen 7 mg/dL (7-18); Bicarbonate 25 mmol/L (21-32); Bilirubin Total 0.2 mg/dL (0.2-1.0); Glucose Level 113 mg/dL (74-106); Potassium 4.2 mmol/L (3.5-5.1); Protein, Total 6.8 g/dL (6.4-8.2); Sodium Level 140 mmol/L (136-145)
[2019-04-28] MEDS ORDERED: HEPA 1000U/500MLS 2,000 UNIT/1,000 ML BAG IV ONE (08:28)
[2019-04-28] MEDS ORDERED: NITROGLYCERIN 100 MCG/ML SYR (for cath lab use only) IV ONE (08:59)
[2019-04-28] MEDS ORDERED: NA CHLORIDE 0.9% 0 ML ONE (08:59)
[2019-04-28] MEDS ORDERED: HEPARIN 5000 UNIT/ML 1 ML VIAL ONE (08:59)
[2019-04-28] MEDS ORDERED: ATROPINE SULF 1 MG/10 ML SYR IV ONE (08:59)
[2019-04-28] MEDS ORDERED: NICARDIPINE HCL 25 MG/10 ML IV ONE (08:59)
[2019-04-28] MEDS: NICOTINE 21 MG/PAT TD SCH (09:00)
[2019-04-28] MEDS: FAMOTIDINE 20 MG TAB PO SCH (09:00)
[2019-04-28] MEDS: ROPINIROLE HCL 1 MG TAB PO SCH (09:00)
[2019-04-28] MEDS: NITROGLYCERIN 0.2 MG/HR (5 MG) PATCH TD SCH (09:00)
[2019-04-28] MEDS ORDERED: MIDAZOLAM HCL 2 MG/2 ML INJ ONE ×2 (09:23→09:30)
[2019-04-28] MEDS ORDERED: FENTANYL CITR 100 MCG/2 ML ONE (09:24)
[2019-04-28] MEDS ORDERED: ONDANSETRON 4 MG/2 ML VIAL ONE (09:27)
[2019-04-28] MEDS: ACETAMINOPHEN 325 MG TABLET PO PRN (13:58)
--- NOTE | 2019-04-28 14:59 | P.PN ---
Subjective Date of Service: 04/28/19 Chief Complaint: seen , admitted for chest pain with mild troponin Subjective: No new changes, No C/O voiced Review of Systems 10-point ROS is otherwise unremarkable Physical Examination - Vital Signs Temperature: 97 F Blood Pressure: 159/81 Pulse: 61 Respirations: 16 Pulse Ox (%): 96 - Physical Exam General: Alert, In no apparent distress, Oriented x3 HEENT: Atraumatic, Normocephalic Neck: Supple, 2+ carotid pulse no bruit Respiratory: Clear to auscultation bilaterally, Normal air movement Cardiovascular: Normal pulses, Regular rate/rhythm Gastrointestinal: Normal bowel sounds, Soft and benign Musculoskeletal: No clubbing, No swelling - Studies Medications List Reviewed: Yes Assessment & Plan - Problems (Diagnosis) (1) Chest pain at rest Current Visit: Yes Status: Acute (2) Non-ST elevation DC (NSTEMI) Current Visit: Yes Status: Acute (3) HTN (hypertension) Current Visit: Yes Status: Acute Physician Review: Patient Assessed, Agree with Above Assessment and Plan Physician Review Additional Text: - 04/28- follow cardiac cath today - continue other care -can dc lovenox now and start sc heparin 04/27 # Chest pain - mild tropinin elevation -c/w lovenox . plavix ,aspirin - mild vagina spotting reported , will need outpt gynecology referal after acute ACS resolved -appreciated cardiology eval -follow plan for cardiac cath in am # HTN -elevated , rc/w lsinopril and coreg - increase coreg dose today # Tob use -on nicotine patch Dispo- possible home in am after cardiac cath
[2019-04-28 16:10] VITALS: BP 169/87; TEMP 98.2
[2019-04-28 16:57] VITALS: O2SAT 97
[2019-04-28] MEDS ORDERED: HEPARIN 5000 UNIT/ML 1 ML VIAL SQ SCH (17:00)
[2019-04-28] MEDS ORDERED: NITROGLYCERIN 0.4 MG/TAB SL PRN (17:09)
[2019-04-28] MEDS ORDERED: ACETAMINOPHEN 325 MG TABLET PO PRN (17:10)
--- NOTE | 2019-04-28 17:32 | P.DS ---
Admission Date: 04/26/19 Discharge Date: 04/28/19 Disposition: ROUTINE DISCHARGE Discharge Condition: GOOD Reason for Admission: seen , admitted for chest pain with mild troponin - Problems (1) Chest pain at rest Current Visit: Yes Status: Acute (2) Non-ST elevation DC (NSTEMI) Current Visit: Yes Status: Acute (3) HTN (hypertension) Current Visit: Yes Status: Acute Brief History of Present Illness: Patient with chronic tobacco use admitted for chest pain , reproducible , no EKG changes but noted with midl troponin elevated to 0.6 Hospital Course: on Admission , she was started on Lovenox , plavix and aspirin . She developed some vagina bleeding with Lovenox and Plavix use. She was evaluated by cardiology and had an angiogram done with minimal plaques noted . Tobacco cessation ahs been advised . She was started on statin and apsirin now as weell as increase in her losartan for better BP control . she has been advised to follow with her PCP for gynceology referal as outpt Vital Signs/Physical Exam: Temp Pulse Resp BP Pulse Ox 98.2 F 76 18 169/87 H 97 04/28/19 16:00 04/28/19 16:00 04/28/19 16:00 04/28/19 16:00 04/28/19 16:00 General: Alert, In no apparent distress, Oriented x3 HEENT: Atraumatic, Normocephalic Neck: Supple, 2+ carotid pulse no bruit Respiratory: Clear to auscultation bilaterally, Normal air movement Cardiovascular: No edema, Regular rate/rhythm, Normal S1 S2 Gastrointestinal: Normal bowel sounds, Soft and benign Musculoskeletal: No clubbing, No swelling Integumentary: No rashes, No breakdown Neurological: Normal gait, Normal speech Laboratory Data at Discharge: WBC 8.8 K/uL (4.3-10.9) 04/28/19 06:03 Hgb 12.7 g/dL (12.0-15.0) 04/28/19 06:03 Hct 37.5 % (36.0-45.0) 04/28/19 06:03 Plt Count 339 K/uL (152-406) 04/28/19 06:03 PT 11.2 SECONDS (9.5-12.5) 04/26/19 08:15 INR 0.95 04/26/19 08:15 Sodium 140 mmol/L (136-145) 04/28/19 06:03 Potassium 4.2 mmol/L (3.5-5.1) 04/28/19 06:03 BUN 7 mg/dL (7-18) 04/28/19 06:03 Creatinine 0.67 mg/dL (0.55-1.3) 04/28/19 06:03 Glucose 113 mg/dL (74-106) H 04/28/19 06:03 Magnesium 2.2 mg/dL (1.8-2.4) 04/26/19 08:15 Total Bilirubin 0.2 mg/dL (0.2-1.0) 04/28/19 06:03 AST 18 U/L (15-37) 04/28/19 06:03 ALT 30 U/L (12-78) 04/28/19 06:03 Alkaline Phosphatase 113 U/L (45-117) 04/28/19 06:03 Troponin I Cancelled 04/26/19 21:00 Triglycerides 154 mg/dL (<150) H 04/26/19 17:05 Cholesterol 193 mg/dL (<200) 04/26/19 17:05 HDL Cholesterol 56 mg/dL (40-60) 04/26/19 17:05 Cholesterol/HDL Ratio 3.45 04/26/19 17:05 Home Medications: Cyclobenzaprine HCl [Flexeril] 1 tab PO BID PRN 04/26/19 Duloxetine HCl 1 tab PO DAILY 04/26/19 Ropinirole HCl 1 tab PO DAILY 04/26/19 Ropinirole HCl 3 mg PO BEDTIME 04/26/19 Tramadol HCl [Ultram] 1 tab PO TID PRN 04/26/19 Aspirin Chewable [Aspirin Chewable*] 81 mg PO DAILY #30 tab.chew 04/28/19 Atorvastatin Calcium [Lipitor*] 20 mg PO BEDTIME #30 tab 04/28/19 Losartan Potassium 100 mg PO DAILY #30 tablet 04/28/19 New Medications: Aspirin Chewable [Aspirin Chewable*] 81 mg PO DAILY #30 tab.chew Atorvastatin Calcium [Lipitor*] 20 mg PO BEDTIME #30 tab Losartan Potassium 100 mg PO DAILY #30 tablet Patient Discharge Instructions: - Avoid heavy lifting for next 3-5 days. -can remove groin bandaid/dressing in 1 day. -Arrange with your PCP to have a gynecology referral Diet: Low sodium Activity: Ad katharine Time spent managing pt's care (in minutes): 35
[2019-04-28] MEDS ORDERED: NA CHLORIDE 0.9% 1,000 ML IV SCH (18:00)
[2019-04-28] MEDS ORDERED: carvediloL 12.5 MG TAB PO SCH (18:00)
--- NOTE | 2019-04-28 21:01 | OP ---
Surgeon: Steve Le MD Adaptive Physical Education Specialist: Honey Ibarra. Procedure: Left heart catheterization with coronary and left ventricular angiography. Procedure Findings: The patient has whsk-sa-wlalwksa coronary plaque. There is no significant steno sis. Her left ventricular ejection fraction is normal. Segmental wall motion all normal. Left vent ricular end-diastolic pressure was slightly elevated at 20 to 22. She also has systolic hypertension . Recommendation is for medical therapy following a non-ST elevation myocardial infarction and also smoking cessation. 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 Prepared and draped in usual sterile fashion. Right radial approach was atte mpted. We were able to enter the artery, cannulated with a wire, but the sheath would not pass and w hat was partially and it would not flush, so we presume the artery was spasming intently, withdrew th e sheath and closed it with a TR band. We did not do any catheter manipulations inside the artery, a lthough the sheath was partly in. We switched to the right femoral approach. We anesthetized the ti ssues over the right femoral artery using lidocaine, entered it with an 18-gauge needle, cannulated i t with a short J-wire and placed a 4-Canadian sheath. We used a JL4 to angiogram in the left coronary, 3DRC to angiogram in the right, angled pigtail to angiogram in the left ventricle and take pressures . Catheters were removed over a wire. We then angiogram the sheath and found that the common femora l artery was about a 3 mm to 4 mm vessel and felt that using a closure device would not be ideal, so we removed the sheath and used manual pressure to close the arteriotomy. Complications from the proc edure none. Estimated Blood Loss: 10 cc. JORGE LUIS/MODMalcolm Voice ID: [id number] Report ID: [id number]
== END 2019-04-28 17:20 | disposition home or self-care (01) | DRG 282 ==
LOC: ER 07:47 → 4TH 13:46
PROVIDERS: ADMIT Internal Medicine; ATTEND Internal Medicine
PROC: 4A023N7 Measurement of Cardiac Sampling and Pressure, Left Heart, Percutaneous Approach (ICD-10-PCS; principal; 2019-04-28)
PROC: B205YZZ Plain Radiography of Left Heart using Other Contrast (ICD-10-PCS; 2019-04-28)
DX: I21.4 Non-ST elevation (NSTEMI) myocardial infarction (principal); I10 Essential (primary) hypertension; F17.210 Nicotine dependence, cigarettes, uncomplicated
CPT/HCPCS: 36415; 71045; 80048; 80053; 80061; 80076; 81003; 81015; 83735; 83880; 84484; 85025; 85610; 87086; 87088; 93005; 93458; 96372; 99285; C1893; J0360; J0583; J1644; J1650; J2250; J2405; J3010; J7030

== ENCOUNTER 2024-01-25 12:00 | Day surgery (SDC) | payer OTHER ==
[2024-01-22 15:27] LABS: Absolute Eosinophils 0.3 K/uL (0-0.5); Absolute Lymphocytes (CBC) 2.6 K/uL (0.7-4.9); Absolute Monocytes 0.7 K/uL (0.1-1.3); Absolute Neutrophil 7.6 K/uL (1.8-8.0); Basophils % 0.3 % (0-1.3); Eosinophils % 2.3 % (0-4.4); Hematocrit 37.4 % (36.0-45.0); Hemoglobin 12.1 g/dL (12.0-15.0); Lymphocytes % 23.2 % (15.3-44.8); MCH 29.5 pg (27.0-35.0); MCHC 32.4 g/dL (32.0-36.0); MPV 9.3 fL (7.6-11.3); Monocytes % 6.4 % (3.3-12.3); Neutrophils % 67.8 % (41.7-73.7); Platelets 313 thou/uL (152-406); RBC Red Blood Cell Count 4.11 M/uL (3.86-4.86); Red Cell Distribution Width 14.4 % (12.1-15.2)
[2024-01-22 15:30] LABS: PT Prothrombin Time 10.9 SECONDS (9.4-12.5); Protime INR 0.97
[2024-01-22 15:45] LABS: Anion Gap 10.5 mEq/L (5.0-15.0); Potassium 3.5 mEq/L (3.5-5.1)
--- NOTE | 2024-01-23 12:09 | EKG ---
Test Date: 2024-01-22 Test Time: 14:23:21 Volunteer Specialist: YENY MEASUREMENT RESULTS: Intervals: Rate: 73 GA: 158 QRSD: 86 QT: 408 QTc: 449 Booker: P: 54 GA: 158 QRS: 78 T: 77 INTERPRETIVE STATEMENTS: Normal sinus rhythm Normal ECG Compared to ECG 11/30/2023 13:30:58 No significant changes Electronically Signed On 01-23-24 12:07:09 CDT by Jaime Haines
[2024-01-25] MEDS ORDERED: NA CHLORIDE 0.9% 500 ML ONE (12:22)
[2024-01-25] MEDS ORDERED: HEPA 1000U/500MLS 2,000 UNIT/1,000 ML BAG IV ONE (13:39)
[2024-01-25] MEDS ORDERED: LIDOCAINE 1% 20 ML MDV ONE (13:39)
[2024-01-25] MEDS ORDERED: HEPARIN 10,000 UNIT/10 ML VIAL IV ONE (13:39)
[2024-01-25] MEDS ORDERED: ATROPINE SULF 1 MG/10 ML SYR IV ONE (13:40)
[2024-01-25] MEDS ORDERED: TICAGRELOR 90 MG TABLET PO ONE (13:40)
[2024-01-25] MEDS ORDERED: CLOPIDOGREL 75 MG TABLET ONE (13:40)
[2024-01-25] MEDS ORDERED: HEPARIN 5000 UNIT/ML 1 ML VIAL ONE (13:40)
[2024-01-25] MEDS ORDERED: ASPIRIN 325 MG TAB ONE (13:40)
[2024-01-25] MEDS ORDERED: VERAPAMIL HCL 10 MG/4 ML VIAL IV ONE (14:01)
[2024-01-25] MEDS ORDERED: MIDAZOLAM HCL 2 MG/2 ML INJ ONE (14:10)
[2024-01-25] MEDS ORDERED: FENTANYL CITR 100 MCG/2 ML ONE (14:11)
[2024-01-25 16:19] VITALS: BP 145/68; O2SAT 95
--- NOTE | 2024-01-26 02:12 | OP ---
Date of Procedure: 01/25/2024 Surgeon: SERA TERRY Procedure Performed: Peripheral angiogram with runoff. Indication: Peripheral vascular disease. Access: Right radial artery 6-Tanzanian closed with TR band.. Complications: None. Bleeding: Less than 50 mL. Anesthesia: Total sedation time was 45 minutes. I used fentanyl and Versed. Description Of Procedure: After risks, benefits, and alternatives were explained, the patient agreed to procedure and signed informed consent. The patient was brought into the cardiac catheterization laboratory, prepped and draped in usual sterile fashion. Then, I accessed right radial artery using pediatric micropuncture kit, placed a 6-Tanzanian Slender sheath and took a 4-Tanzanian JL3 catheter into t he aortic arch to abdominal aorta, then exchanged for a long 4-Tanzanian pigtail catheter and placed it in distal aorta, performed distal aortogram and runoff, then I removed the catheter and th e sheath, placed TR band with good hemostasis. Findings: 1.Distal aorta is widely patent. 2.Right lower extremity. Right common iliac and external iliacs, there is a long heavily calcified 80% stenosis. Then the right common femoral and profunda and SFA are normal. The right popliteal ar ivone is normal, anterior tibial, posterior tibial, and peroneal arteries were all patent with mild di sease. 3.Left lower extremity. There is a widely patent common and external iliac stent and the common fem oral artery is widely open. The profunda is widely patent, no disease and the SFA is normal. The po pliteal artery is normal on the left, the anterior tibial is 100% occluded ostially, but it reconstit utes in the mid of leg while the peroneal and posterior tibial artery are widely patent. Conclusion: 1.Severe right common and external iliac artery, severe disease that is heavily calcified. 2.Totally occluded left anterior tibial artery with reconstitution from the other 2 arteries. Plan: We will plan for an intervention on the right common iliac artery at [facility] with shock wav e lithotripsy and likely stent placement and the access will be right common femoral artery. SR/MODL Voice ID: [id number] Report ID: [id number]
== END 2024-01-25 16:20 | disposition home or self-care (01) ==
LOC: CCL 12:00
PROVIDERS: ATTEND Internal Medicine
DX: I70.203 Unspecified atherosclerosis of native arteries of extremities, bilateral legs (principal); I70.92 Chronic total occlusion of artery of the extremities; I25.10 Atherosclerotic heart disease of native coronary artery without angina pectoris; I65.23 Occlusion and stenosis of bilateral carotid arteries; E11.9 Type 2 diabetes mellitus without complications; I10 Essential (primary) hypertension; F17.210 Nicotine dependence, cigarettes, uncomplicated; Z95.820 Peripheral vascular angioplasty status with implants and grafts; Z95.5 Presence of coronary angioplasty implant and graft; Z79.84 Long term (current) use of oral hypoglycemic drugs; Z79.85 Long-term (current) use of injectable non-insulin antidiabetic drugs; Z79.899 Other long term (current) drug therapy; Z88.2 Allergy status to sulfonamides; Z88.5 Allergy status to narcotic agent; Z82.49 Family history of ischemic heart disease and other diseases of the circulatory system
CPT/HCPCS: 93005; 85025; 80048; 36415; 85610; 82947; 85730; 36200; 75630; 76937; C1893; J1644; J2001; J7040; J0461; J2250; J3010

== ENCOUNTER 2025-03-05 14:42 | Emergency (ER) | payer OTHER ==
--- OUTSIDE RECORDS SUMMARY | 2025-03-05 14:45 | XMS REPORT | Clinical Summary ---
Author Name Unknown Organization [facility] [place] Address [address] [place] [address] Care Team Providers Care Online User Experience Strategist Name Role Phone Kory Ponce MD Primary Care Provider [phone] Osbaldo Berman PA Unavailable Mallika Lock MD Unavailable [email or web address] Tabitha Crenshaw PA Unavailable [phone] Bettye Chao PA Unavailable Lon Elkins Unavailable [phone] Joellen Key PA Unavailable [phone] Steve Bianchi MD Unavailable Danny Kumar PA Unavailable [phone] Kory Ponce MD Unavailable Social History Tobacco Use Types Packs/Day Years Used Date Smoking Tobacco: Never Assessed Comments Unknown Sex and Gender Information Value Date Recorded Sex Assigned at Not on file 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 Gender Identity Not on file Sexual Orientation Not on file Plan of Treatment Not on file Insurance [facility] [employer] Care Teams Online User Experience Strategist Relationship Specialty Start Date End Date Kory Ponce MD [address] [place] [phone] [email or web address] PCP - General 07/21/15 Osbaldo Berman PA [address] [place] [address] [phone] [email or web address] [email or web address] Sanitizer 07/28/15 Mallika Lock MD [email or web address] Physician 07/28/15 Tabitha Crenshaw PA [address] [place] [phone] [email or web address] [email or web address] Production Sanitizer 07/28/15 Bettye Chao PA [address] [place] [phone] [email or web address] Physician Production Sanitizer 07/28/15 Lon Elkins PA [address] [place] [phone] Physician Production Sanitizer 07/28/15 Joellen Key PA [address] [place] [phone] [email or web address] Physician Production Sanitizer 07/28/15 Steve Bianchi MD [address] [place] [phone] [email or web address] Physician 07/28/15 Danny Kumar PA [address] [place] [phone] [email or web address] Physician Production Sanitizer 07/28/15 Kory Ponce MD [address] [place] [phone] [email or web address] Physician 07/28/15
[2025-03-05] MEDS ORDERED: KETOROLAC 30 MG/ML INJ ONE (15:23)
--- NOTE | 2025-03-05 16:00 | RAD REPORT ---
EXAM: XR RIGHT HAND HISTORY: Pain. PAIN COMPARISON: None TECHNIQUE: Multiple projections of the right hand submitted. FINDINGS: Lucency seen in the distal radius along the ulnar aspect compatible with nondisplaced dista l radius fracture. No additional evidence of fracture or dislocation.
--- NOTE | 2025-03-05 17:30 | EDPHYS ---
Physician Documentation [facility] Name: Lory Naylor Age: 64 yrs Sex: Female : 1960 Arrival Date: 03/05/2025 Time: 14:42 Bed 9 Private MD: ED Physician Michael Navarro HPI: 03/05 20:42 This 64 yrs old Female presents to ER via Ambulatory with complaints of Fall dr5 Injury. 20:42 Details of fall: The patient fell from a height. Patient is a 62-year-old female with dr5 history of hypertension, CABG, COPD coming in with fall in which she slipped on steps and landed on right wrist. Patient denies hitting head, losing consciousness, dizziness, numbness or tingling.. Historical: - Allergies: 15:12 Codeine; kb4 15:12 Sulfa (Sulfonamide Antibiotics); kb4 - PMHx: 15:12 Hypertension; CABG (Hypertension); COPD; Neurpoathy; kb4 - Immunization history: Last tetanus immunization: unknown. - Infectious Disease History:: Denies. - Social history:: Smoking status: Patient reports the use of cigarette tobacco products, smokes one-half pack cigarettes per day, Patient uses alcohol, occasionally. ROS: 20:42 Constitutional: as per hpi dr5 Exam: 20:42 Constitutional: This is a well developed, well nourished patient who is awake, alert, dr5 and in no acute distress. Head/Face: Normocephalic, atraumatic. Eyes: Pupils equal round and reactive to light, extra-ocular motions intact. Lids and lashes normal. Conjunctiva and sclera are non-icteric and not injected. Cornea within normal limits. Periorbital areas with no swelling, redness, or edema. Neck: Trachea midline, no thyromegaly or masses palpated, and no cervical lymphadenopathy. Supple, full range of motion without nuchal rigidity, or vertebral point tenderness. No Meningismus. Chest/axilla: Normal chest wall appearance and motion. Nontender with no deformity. No lesions are appreciated. Cardiovascular: Regular rate and rhythm with a normal S1 and S2. Normal PMI, no JVD. No pulse deficits. Respiratory: Lungs have equal breath sounds bilaterally, clear to auscultation. No rales, rhonchi or wheezes noted. No increased work of breathing, no retractions or nasal flaring. Back: No spinal tenderness. No costovertebral tenderness. Full range of motion. Skin: Warm, dry with normal turgor. Normal color with no rashes, no lesions, and no evidence of cellulitis. Neuro: Awake and alert, GCS 15, oriented to person, place, time, and situation. Cranial nerves II-XII grossly intact. Motor strength 5/5 in all extremities. Sensory grossly intact. Cerebellar exam normal. Normal gait. 20:42 Musculoskeletal/extremity: Extremities: noted in the right wrist: pain, ROM: no acute changes, intact in all extremities, Pulses: Sensation intact. Vital Signs: 15:10 BP 152 / 83; Resp 18; Temp 98.2; Pulse Ox 99% on R/A; Weight 97.07 kg; Height 5 ft. 3 kb4 in. ; Pain 5/10; 15:15 Pulse 98; kb4 17:05 Pain 3/10; me1 17:38 BP 148 / 76; Pulse 89; Resp 18; Temp 98.1; Pulse Ox 99% ; me1 15:10 Body Mass Index 37.91 (97.07 kg, 160.02 cm) kb4 15:10 Pain Scale: Adult kb4 17:05 Pain Scale: Adult me1 Procedures: 20:42 Splinting: Splint applied to right wrist using wrist splint, applied by nurse. Examined dr5 by me, post splint application: neurovascular intact, 2+ distal pulses palpable, brisk capillary refill noted, Patient tolerated well. MDM: 14:55 Medical Screening Exam initiated dr5 20:42 Differential diagnosis: abrasion, contusion, fracture, sprain, strain. Data reviewed: dr5 vital signs, nurses notes, radiologic studies, plain films. Consideration of Admission/Observation Escalation of care including admission/observation considered. Escalation considered patient found to have open fracture. I considered the following discharge prescriptions or medication management in the emergency department I discussed and recommended Over The Counter medications, Medications were administered in the Emergency Department. See MAR. Independent interpretation of the following test(s) in the Emergency Department X-Ray: My interpretation is Independent interpretation of x-ray reveals small fracture to distal radius. Care significantly affected by the following chronic conditions: Hypertension, COPD. Care significantly affected by the following Social Determinants of Health: Poor access to healthcare and/or lack of insurance, Poor access to transportation, Problems related to employment. Counseling: I had a detailed discussion with the patient and/or guardian regarding the historical points, exam findings, and any diagnostic results supporting the discharge/admit diagnosis, the presence of at least one elevated blood pressure reading (>120/80) during this emergency department visit, radiology results, the need for outpatient follow up, for definitive care, a family practitioner, a orthopedic surgeon, to return to the emergency department if symptoms worsen or persist or if there are any questions or concerns that arise at home. Medication response: Response to treatment: the patient's symptoms have markedly improved after treatment. Special discussion: I discussed with the patient/guardian in detail that at this point there is no indication for admission to the hospital. It is understood, however, that if the symptoms persist or worsen the patient needs to return immediately for re-evaluation. Based on the history and exam findings, there is no indication for further emergent testing or inpatient evaluation. I discussed with the patient/guardian the need to see the orthopedic surgeon for further evaluation of the symptoms. ED course: CD and report made for patient to take with her to orthopedics next week. Recommended alternating Tylenol and Motrin as needed for pain and swelling. Splint applied. All question answered. Strict ER precautions given.. 03/05 15:20 Order name: Hand Right 3 View XRAY; Complete Time: 16:14 kb4 03/05 16:21 Order name: Wrist Splint: Volar Preformed; Complete Time: 17:05 dr5 Administered Medications: 15:36 Drug: Ketorolac IM 30 mg IM once Route: IM; Site: left deltoid; me1 17:05 Follow up: Pain 310 Adult; Response: No adverse reaction; Pain is decreased me1 Disposition: 03/07 07:53 Co-signature as Attending Physician, Michael Navarro MD I agree with the assessment and aster plan of care. Disposition Summary: 03/05/25 17:30 Discharge Ordered Notes: Location: Home dr5 Condition: Stable dr5 Diagnosis - Unspecified fracture of the lower end of right radius, initial encounter for closed dr5 fracture Followup: dr5 - With: Emergency Department - When: As needed - Reason: Worsening of condition Followup: dr5 - With: Nasim Shannon MD - When: 1 - 2 days - Reason: Recheck today's complaints, Continuance of care, Re-evaluation by your physician Followup: dr5 - With: Danny Sheehan MD - When: 1 - 2 days - Reason: Recheck today's complaints, Continuance of care, Re-evaluation by your physician Followup: dr5 - With: Manuel Head MD - When: 1 - 2 days - Reason: Recheck today's complaints, Continuance of care, Re-evaluation by your physician Discharge Instructions: - Discharge Summary Sheet dr5 - Radial Fracture dr5 Forms: - Work release form rv1 - Medication Reconciliation Form dr5 - Patient Portal Instructions dr5 - Leadership Thank You Letter dr5 Prescriptions: - Ibuprofen 800 mg Oral Tablet - take 1 tablet ORAL route every 12 hours As needed take with food; 20 tablet; dr5 Refills: 0, Product Selection Permitted Signatures: Dispatcher [employer] Michael Yeh MD MD cha Eddleman, Michelle, RN RN me1 Willem Germain, RESIDENTIAL SALES REPRESENTATIVE-C RESIDENTIAL SALES REPRESENTATIVE-Cdr5 Cleo Smith RN RN kb4
--- NOTE | 2025-03-05 17:30 | ER ---
Nurse's Notes [facility] Name: Lory Naylor Age: 64 yrs Sex: Female : 1960 Arrival Date: 03/05/2025 Time: 14:42 Bed 9 Private MD: Diagnosis: Unspecified fracture of the lower end of right radius, initial encounter for closed fracture Presentation: 03/05 15:06 Chief complaint: Patient states: pt reports missing a step, fell backwards onto R hand, kb4 swelling noted to fingers with Limited ROM. Care prior to arrival: None. Mechanism of Injury: Fall down steps. Trauma event details: Injury occurred in the [facility], Injury occurred: at home. Injury occurred: March 05, 2025 Injury occurred at: 12:30. 15:06 Acuity: MARIS 3 kb4 15:06 Method Of Arrival: Ambulatory kb4 15:10 Coronavirus screen: At this time, unable to obtain information related to travel kb4 outside the [place] Ebola Screen: No symptoms or risks identified at this time. Initial Sepsis Screen: Does the patient meet any 2 criteria? No. Patient's initial sepsis screen is negative. Does the patient have a suspected source of infection? No. Patient's initial sepsis screen is negative. Risk Assessment: Do you want to hurt yourself or someone else? Patient reports no desire to harm self or others. Onset of symptoms was March 05, 2025. Historical: - Allergies: 15:12 Codeine; kb4 15:12 Sulfa (Sulfonamide Antibiotics); kb4 - PMHx: 15:12 Hypertension; CABG (Hypertension); COPD; Neurpoathy; kb4 - Immunization history: Last tetanus immunization: unknown. - Infectious Disease History:: Denies. - Social history:: Smoking status: Patient reports the use of cigarette tobacco products, smokes one-half pack cigarettes per day, Patient uses alcohol, occasionally. Screenin:20 [facility] ED Fall Risk Assessment (Adult) History of falling in the last 3 months, me1 including since admission Yes- single mechanical fall (1 pt) Confusion or Disorientation No (0 pts) Intoxicated or Sedated No (0 pts) Impaired Gait No (0 pts) Mobility Assist Device Used No (0 pt) Altered Elimination No (0 pt) Score/Fall Risk Level 0 - 2 = Low Risk Maintained a safe environment, Provided non-skid footwear, Hourly rounding (assess needs \T\ fall precautionary measures) done. Abuse screen: Denies threats or abuse. Nutritional screening: No deficits noted. Tuberculosis screening: No symptoms or risk factors identified. Assessment: 15:06 General: Appears in no apparent distress. comfortable, Behavior is calm, cooperative. kb4 Pain: Complains of pain in right hand and right wrist Pain currently is 9 out of 10 on a pain scale. Musculoskeletal: Capillary refill < 3 seconds, Range of motion: limited in right wrist Swelling present in right hand. 15:20 General: Appears in no apparent distress. comfortable, Behavior is calm, cooperative, me1 appropriate for age, Reports pt reports missing a step, fell backwards onto R hand, swelling noted to fingers with Limited ROM. Pain: Complains of pain in right hand and right wrist Pain does not radiate. Pain currently is 6 out of 10 on a pain scale. Quality of pain is described as aching, throbbing, Pain began suddenly, Is continuous. Neuro: Level of Consciousness is awake, alert, obeys commands, Oriented to person, place, time, situation, Appropriate for age. Cardiovascular: Patient's skin is warm and dry. Respiratory: Airway is patent Respiratory effort is even, unlabored, Respiratory pattern is regular, symmetrical. GI: No signs and/or symptoms were reported involving the gastrointestinal system. : No signs and/or symptoms were reported regarding the genitourinary system. EENT: No signs and/or symptoms were reported regarding the EENT system. Derm: Skin is intact, Skin is normal. Musculoskeletal: Capillary refill < 3 seconds, Range of motion: limited in right hand and right wrist Swelling present in right hand and right wrist. Injury Description: pt reports missing a step, fell backwards onto R hand, swelling noted to fingers with Limited ROM. Vital Signs: 15:10 BP 152 / 83; Resp 18; Temp 98.2; Pulse Ox 99% on R/A; Weight 97.07 kg; Height 5 ft. 3 kb4 in. ; Pain 5/10; 15:15 Pulse 98; kb4 17:05 Pain 3/10; me1 17:38 BP 148 / 76; Pulse 89; Resp 18; Temp 98.1; Pulse Ox 99% ; me1 15:10 Body Mass Index 37.91 (97.07 kg, 160.02 cm) kb4 15:10 Pain Scale: Adult kb4 17:05 Pain Scale: Adult me1 ED Course: 14:48 Patient arrived in ED. al6 14:55 Willem Germain FNP-C [facility] 14:55 Michael Navarro MD is Attending Physician. dr5 15:08 Triage completed. kb4 15:12 Arm band placed on left wrist. kb4 15:19 Priscila Watson, BEAR is Primary Nurse. me1 15:20 Patient has correct armband on for positive identification. Bed in low position. Call me1 light in reach. Side rails up X 1. Provided Education on: POC. Verbalized understanding.. Client placed on continuous cardiac and pulse oximetry monitoring. NIBP monitoring applied. Pulse ox on. NIBP on. 15:20 No provider procedures requiring assistance completed. me1 15:50 Hand Right 3 View XRAY In Process Unspecified. EDMS 17:30 Nasim Shannon MD is Referral Physician. dr5 17:30 Danny Sheehan MD is Referral Physician. dr5 17:30 Manuel Head MD is Referral Physician. dr5 17:40 Patient did not have IV access during this emergency room visit. me1 03/06 14:06 Primary Nurse role handed off by Priscila Watson RN dr5 Administered Medications: 03/05 15:36 Drug: Ketorolac IM 30 mg IM once Route: IM; Site: left deltoid; me1 17:05 Follow up: Pain 3/10 Adult; Response: No adverse reaction; Pain is decreased me1 Medication: 15:20 VIS not applicable for this client. me1 Outcome: 17:30 Discharge ordered by . dr5 17:40 Discharged to home ambulatory, me1 17:40 Condition: stable 17:40 Discharge instructions given to patient, Instructed on discharge instructions, follow up and referral plans. medication usage, Demonstrated understanding of instructions, follow-up care, medications, Prescriptions given X 1, 17:41 Patient left the ED. me1 03/06 14:07 Patient left the ED. dr5 Signatures: Dispatcher [employer] ED[facility] Priscila Watson, BEAR RN me1 Willem Germain FNP-C TAILINGS WORKER-[facility]5 Mervat Manriquez al6 Cleo Smith RN RN kb4 Corrections: (The following items were deleted from the chart) 03/05 15:20 15:06 Chief complaint: Patient states: pt reports missing a step, fell backwards onto R me1 hand, swelling noted to fingers with Limited ROM kb4
[2025-03-05 19:06] VITALS: O2SAT 99
[2025-03-06 16:14] VITALS: BP 148/76; TEMP 98.1
== END 2025-03-06 14:07 | disposition home or self-care (01) ==
LOC: ER 14:42
DX: S52.501A Unspecified fracture of the lower end of right radius, initial encounter for closed fracture (principal); W10.9XXA Fall (on) (from) unspecified stairs and steps, initial encounter; Z95.1 Presence of aortocoronary bypass graft
CPT/HCPCS: 73130; 96372; 99284; J1885